=== PATIENT | male | born 1995 | race Caucasian/White ===

== ENCOUNTER 2017-08-18 09:53 | Emergency (ER) | payer BC, OTHER ==
[2017-08-18] MEDS ORDERED: Sodium Chloride 0.9% 1,000 ML IV ONE ×2 (10:09→11:51)
[2017-08-18] MEDS ORDERED: Ondansetron 4 MG/2 ML SDV IVPUSH ONE (10:09)
--- NOTE | 2017-08-18 10:12 | EDM.PDOC ---
ED HPI GENERAL MEDICAL PROBLEM - General Chief Complaint: Respiratory Problem Stated Complaint: FEVER,COUGH Time Seen by Provider: 08/18/17 09:58 - History of Present Illness INITIAL COMMENTS - FREE TEXT/NARRATIVE: HISTORY AND PHYSICAL: History of present illness: Patient 22-year-old white male presents with a concern of cough bodyaches nausea and vomiting since Saturday he did not receive an influenza immunization this year he denies abdominal pain chest pain or other concern he was exposed to influenza Review of systems: As per history of present illness and below otherwise all systems reviewed and negative. Past medical history: As per history of present illness and as reviewed below otherwise noncontributory. Surgical history: As per history of present illness and as reviewed below otherwise noncontributory. Social history: No reported history of drug or alcohol abuse. Family history: As per history of present illness and as reviewed below otherwise noncontributory. Physical exam: HEENT: Atraumatic, normocephalic, pupils reactive, negative for conjunctival pallor or scleral icterus, mucous membranes dry, throat clear, neck supple, nontender, trachea midline. Lungs: Diminished right base, breath sounds equal bilaterally, chest nontender. Heart: S1S2, regular, negative for clicks, rubs, or JVD. Abdomen: Soft, nondistended, nontender. Negative for masses or hepatosplenomegaly. Negative for costovertebral tenderness. Pelvis: Stable nontender. Genitourinary: Deferred. Rectal: Deferred. Extremities: Atraumatic, negative for cords or calf pain. Neurovascular unremarkable. Neuro: Awake, alert, oriented. Cranial nerves II through XII unremarkable. Cerebellum unremarkable. Motor and sensory unremarkable throughout. Exam nonfocal. Diagnostics: CBC CMP and 1 screening chest x-ray Therapeutics: Normal saline 1 L bolus Zofran 4 mg IV Impression: #1 pneumonia #2 vomiting with dehydration Definitive disposition and diagnosis as appropriate pending reevaluation and review of above. general Pain Score (Numeric/FACES): 6 - Related Data Allergies Allergy/AdvReac Type Severity Reaction Status Date / Time Sulfa (Sulfonamide Allergy Other Verified 08/18/17 10:08 Antibiotics) Home Meds: Home Meds . [No Known Home Meds] 08/18/17 [History] ED ROS GENERAL - Review of Systems Review Of Systems: ROS reveals no pertinent complaints other than HPI. ED EXAM, GENERAL - Physical Exam Exam: See Below (See dictation) Course - Vital Signs Last Recorded V/S: Last Vital Signs Temp 37.2 C 08/18/17 10:08 Pulse 134 H 08/18/17 10:08 Resp 16 08/18/17 10:08 BP 137/71 08/18/17 10:08 Pulse Ox 92 L 08/18/17 10:08 - Orders/Labs/Meds Orders: Active Orders 24 hr Category Date Time Status Chest 2V [CR] Stat Exams 08/18/17 10:09 Taken Levofloxacin/Dextrose 5%-Water [Levaquin in D5W 750 MG/ Med 08/18/17 11:51 Active 150 ML] 750 mg Premix Bag 1 bag IV ONETIME Sodium Chloride 0.9% [Normal Saline] 1,000 ml Med 08/18/17 11:51 Active IV STAT Medication Orders Levofloxacin/Dextrose 750 mg/ (Premix) 150 mls @ 100 mls/hr IV ONETIME ONE Stop: 08/18/17 13:20 Sodium Chloride (Normal Saline) 1,000 mls @ 999 mls/hr IV STAT ONE Stop: 08/18/17 12:51 Labs: Laboratory Tests 08/18/17 08/18/17 Range/Units 10:18 10:18 WBC 17.99 H (4.0-11.0) K/uL RBC 5.03 (4.50-5.90) M/uL Hgb 14.4 (13.0-17.0) g/dL Hct 41.2 (38.0-50.0) % MCV 81.9 (80.0-98.0) fL MCH 28.6 (27.0-32.0) pg MCHC 35.0 (31.0-37.0) g/dL RDW Std Deviation 36.5 (28.0-62.0) fl RDW Coeff of Abhilash 12 (11.0-15.0) % Plt Count 219 (150-400) K/uL MPV 10.10 (7.40-12.00) fL Add Manual Diff YES Neutrophils % (Manual) 73 (48.0-80.0) % Band Neutrophils % 15 % Lymphocytes % (Manual) 9 L (16.0-40.0) % Monocytes % (Manual) 2 (0.0-15.0) % Metamyelocytes % 1 % Nucleated RBC % 0.0 /100WBC Absolute Seg Neuts 13.1 H (1.4-5.7) Band Neutrophils # 2.7 Lymphocytes # (Manual) 1.6 (0.6-2.4) Monocytes # (Manual) 0.4 (0.0-0.8) Absolute Metamyelocyte 0.2 Nucleated RBCs # 0 K/uL Sodium 136 (136-146) mmol/L Potassium 3.8 (3.5-5.1) mmol/L Chloride 99 (98-110) mmol/L Carbon Dioxide 24 (21-31) mmol/L BUN 18 (6.0-23.0) mg/dL Creatinine 1.3 (0.6-1.5) mg/dL Est Cr Clr Drug Dosing 90.47 mL/min Estimated GFR (MDRD) > 60.0 ml/min Glucose 115 H (60-110) mg/dL Calcium 9.8 (8.8-10.8) mg/dL Total Bilirubin 1.8 H (0.1-1.5) mg/dL AST 20 (5-40) IU/L ALT 37 (8-54) IU/L Alkaline Phosphatase 76 (40-150) Total Protein 8.3 H (6.0-8.0) g/dL Albumin 4.1 (3.5-5.0) g/dL Globulin 4.2 H (2.0-3.5) g/dL Albumin/Globulin Ratio 1.0 L (1.3-2.8) Meds: Medications Generic Name Dose Route Start Last Admin Trade Name Freq PRN Reason Stop Dose Admin Levofloxacin/Dextrose 750 mg/ 150 mls @ 100 mls/hr 08/18/17 11:51 Premix IV 08/18/17 13:20 ONETIME ONE Sodium Chloride 1,000 mls @ 999 mls/hr 08/18/17 11:51 Normal Saline IV 08/18/17 12:51 STAT ONE Discontinued Medications Generic Name Dose Route Start Last Admin Trade Name Freq PRN Reason Stop Dose Admin Sodium Chloride 1,000 mls @ 999 mls/hr 08/18/17 10:09 08/18/17 10:23 Normal Saline IV 08/18/17 11:09 999 mls/hr STAT ONE Administration Ondansetron HCl 4 mg 08/18/17 10:09 08/18/17 10:26 Zofran IVPUSH 08/18/17 10:10 4 mg ONETIME ONE Administration Departure - Departure Time of Disposition: 10:11 Disposition: Home, Self-Care 01 Condition: Good Clinical Impression: Vomiting, Dehydration, Pneumonia - Discharge Information Referrals: PCP,None [Primary Care Provider] - Forms: ED Department Discharge Additional Instructions: The following information is given to patients seen in the emergency department who are being discharged to home. This information is to outline your options for follow-up care. We provide all patients seen in our emergency department with a follow-up referral. The need for follow-up, as well as the timing and circumstances, are variable depending upon the specifics of your emergency department visit. If you don't have a primary care physician on staff, we will provide you with a referral. We always advise you to contact your personal physician following an emergency department visit to inform them of the circumstance of the visit and for follow-up with them and/or the need for any referrals to a consulting specialist. The emergency department will also refer you to a specialist when appropriate. This referral assures that you have the opportunity for followup care with a specialist. All of these measure are taken in an effort to provide you with optimal care, which includes your followup. Under all circumstances we always encourage you to contact your private physician who remains a resource for coordinating your care. When calling for followup care, please make the office aware that this follow-up is from your recent emergency room visit. If for any reason you are refused follow-up, please contact the [facility] emergency department at and asked to speak to the emergency department charge nurse. Zofran Levaquin as prescribed which was follow-up private medical doctor 1-2 days return as needed as discussed - My Orders Last 24 Hours: My Active Orders 08/18/17 10:09 Chest 2V [CR] Stat 08/18/17 11:51 Levofloxacin/Dextrose 5%-Water [Levaquin in D5W 750 MG/150 ML] 750 mg Premix Bag 1 bag IV ONETIME Sodium Chloride 0.9% [Normal Saline] 1,000 ml IV STAT - Assessment/Plan Last 24 Hours: My Active Orders 08/18/17 10:09 Chest 2V [CR] Stat 08/18/17 11:51 Levofloxacin/Dextrose 5%-Water [Levaquin in D5W 750 MG/150 ML] 750 mg Premix Bag 1 bag IV ONETIME Sodium Chloride 0.9% [Normal Saline] 1,000 ml IV STAT
[2017-08-18 10:49] LABS: CHLORIDE,CL 99 mmol/L (98-110); SODIUM,NA 136 mmol/L (136-146)
[2017-08-18] MEDS ORDERED: Levofloxacin/Dextrose 5%-Water 750 MG in Premix Bag 1 BAG IV ONE (11:51)
[2017-08-18] MEDS ORDERED: Acetaminophen 500 MG Tab PO ONE (12:39)
--- NOTE | 2017-08-20 19:30 | CR ---
EXAM DATE: 08/18/17 PATIENT'S AGE: 22 Patient: MEENA MACHADO Facility: [place], [place] Site . Site : 1995 Study: XRay Chest [id number] 11:13:16 AM Ordering Physician: Orly Lopez Final Report: INDICATION: Pain. Shortness of breath. Cough for about a week. Fever for a few days now. Technique: PA and lateral chest x-ray Findings : Moderate amount of dense opacity/consolidation in the right lower lobe posteriorly. Findings would be consistent with a pneumonia. Recommend followup chest x-ray after treatment to ensure complete resolution. Lungs otherwise clear. Heart size normal. Chest otherwise negative. Dictated by Delio Rico MD @ Aug 18 2017 11:19AM (Electronic Signature) Report Signed by Proxy. [email or web address]
== END 2017-08-18 13:44 | disposition home or self-care (01) ==
LOC: MW.ED 09:53
DX: J18.9 Pneumonia, unspecified organism (principal); E86.0 Dehydration; Z88.2 Allergy status to sulfonamides
CPT/HCPCS: 36415; 71020; 80053; 85025; 87804; 96361; 96365; 96366; 96375; 99284; A9270; J1956; J2405; J7040; 99283